=== PATIENT | female | born 1995 | race African-American/Black ===

== ENCOUNTER 2017-01-24 23:54 | Emergency (ER) | payer OTHER ==
--- NOTE | 2017-01-25 00:15 | EDM.PDOC ---
ED HPI GI/ABDOMINAL - General Chief Complaint: Abdominal Pain Stated Complaint: LEFT SIDE ABDOMINAL PAIN Time Seen by Provider: 01/25/17 00:15 - History of Present Illness INITIAL COMMENTS - FREE TEXT/NARRATIVE: 20-year-old female presents to the emergency room with abdominal pain. This pain has been getting worse over the last couple of days. She has noticed a little bit of blood in her stool at times. Her stools are often hard and she does not go every day. The patient is nursing. She has a history of constipation the patient has been in the [place] a little over a [place]. In her [place] of [facility] she had constipation there as well it sounds like. She has some intermittent nausea no vomiting. 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 Understands and patient. Agrees to proceed Social & Family History - Tobacco Use Smoking Status *Q: Never Smoker Second Hand Smoke Exposure: No - Alcohol Use Days Per Week of Alcohol Use: 0 - Recreational Drug Use Recreational Drug Use: No ED ROS GENERAL - Review of Systems Review Of Systems: See Below Constitutional: Reports: no symptoms, fever, chills Respiratory: Reports: No Symptoms Cardiovascular: Reports: No symptoms GI/Abdominal: Reports: Abdominal pain, Constipation, Nausea. Denies: Diarrhea, Vomiting : Reports: no symptoms ED EXAM, GI/ABD - Physical Exam Exam: See Below Exam Limited By: No limitations General Appearance: alert, no apparent distress Eyes: bilateral: normal appearance Ears: normal external exam, normal canal, hearing grossly normal, normal TMs Nose: normal inspection, normal mucosa, no blood Throat/Mouth: Normal inspection, Normal lips, Normal teeth, Normal gums, Normal oropharynx, Normal voice, No airway compromise Neck: normal inspection, supple, non-tender, full range of motion, other (She has a tender lymph node at the angle of her jaw on the left side this appears to be freely movable) Respiratory/Chest: no respiratory distress, lungs clear, normal breath sounds Cardiovascular: regular rate, rhythm, no edema, no murmur GI/Abdominal: normal bowel sounds, soft, other (Vague bilateral tenderness seems to be worse the local were quadrants no significant upper quadrant discomfort no suprapubic discomfort no rebound or guarding) Back Exam: normal inspection. No: CVA tenderness (L), CVA tenderness (R) Extremities: normal inspection, no pedal edema Course - Vital Signs Last Recorded V/S: Last Vital Signs Temp 36.2 C 01/25/17 00:08 Pulse 68 01/25/17 00:08 Resp 18 01/25/17 00:08 BP 123/83 01/25/17 00:08 Pulse Ox 100 01/25/17 00:08 - Orders/Labs/Meds Orders: Active Orders 24 hr Category Date Time Status Abdomen 2V AP Flat Upright [CR] Stat Exams 01/25/17 00:36 Taken Magnesium Citrate [Citrate of Magnesia] Med 01/25/17 03:12 Once 295 ml PO ONETIME ONE Medication Orders Magnesium Citrate (Citrate Of Magnesia) 295 ml PO ONETIME ONE Stop: 01/25/17 03:13 Labs: Laboratory Tests 01/25/17 01/25/17 01/25/17 Range/Units 00:21 00:21 00:56 WBC 7.97 (3.98-10.04) K/mm3 RBC 4.44 (3.98-5.22) M/mm3 Hgb 11.6 (11.2-15.7) gm/L Hct 35.3 (34.1-44.9) % MCV 79.5 (79.4-94.8) fl MCH 26.1 (25.6-32.2) pg MCHC 32.9 (32.2-35.5) g/dl RDW Std Deviation 44.0 (36.4-46.3) fL Plt Count 275 (182-369) K/mm3 MPV 8.8 L (9.4-12.3) fl Neutrophils % (Manual) 31 L (40-60) % Band Neutrophils % 0 (0-10) % Lymphocytes % (Manual) 55 H (20-40) % Atypical Lymphs % 0 % Monocytes % (Manual) 6 (2-10) % Eosinophils % (Manual) 6 H (0.7-5.8) % Basophils % (Manual) 2 H (0.1-1.2) Platelet Estimate Adequate Plt Morphology Comment Normal Anisocytosis 1+ slight Ovalocytes Few Acanthocytes (Spur) Rare Schistocytes Rare RBC Morph Comment Not Reportable Sodium (136-145) mEq/L Potassium (3.5-5.1) mEq/L Chloride (98-107) mEq/L Carbon Dioxide (21-32) mEq/L Anion Gap (5-15) BUN (7-18) mg/dL Creatinine (0.55-1.02) mg/dL Est Cr Clr Drug Dosing mL/min Estimated GFR (MDRD) (>60) mL/min BUN/Creatinine Ratio (14-18) Glucose (74-106) mg/dL Calcium (8.5-10.1) mg/dL Total Bilirubin (0.2-1.0) mg/dL AST (15-37) U/L ALT (14-59) U/L Alkaline Phosphatase (46-116) U/L Total Protein (6.4-8.2) g/dl Albumin (3.4-5.0) g/dl Globulin gm/dL Albumin/Globulin Ratio (1-2) Urine Color Yellow (Yellow) Urine Appearance Clear (Clear) Urine pH 7.0 (5.0-8.0) Ur Specific [place] 1.020 (1.005-1.030) Urine Protein Trace H (Negative) Urine Glucose (UA) Negative (Negative) Urine Ketones 1+ H (Negative) Urine Occult Blood Negative (Negative) Urine Nitrite Negative (Negative) Urine Bilirubin Negative (Negative) Urine Urobilinogen 0.2 (0.2-1.0) Ur Leukocyte Esterase Negative (Negative) Urine RBC 0-5 (0-5) /hpf Urine WBC 0-5 (0-5) /hpf Ur Epithelial Cells 5-10 H (0-5) /hpf Urine Bacteria Few (FEW) /hpf Urine Mucus Not seen (FEW) /hpf Urine HCG, Qual Negative (NEGATIVE) 01/25/17 Range/Units 00:56 WBC (3.98-10.04) K/mm3 RBC (3.98-5.22) M/mm3 Hgb (11.2-15.7) gm/L Hct (34.1-44.9) % MCV (79.4-94.8) fl MCH (25.6-32.2) pg MCHC (32.2-35.5) g/dl RDW Std Deviation (36.4-46.3) fL Plt Count (182-369) K/mm3 MPV (9.4-12.3) fl Neutrophils % (Manual) (40-60) % Band Neutrophils % (0-10) % Lymphocytes % (Manual) (20-40) % Atypical Lymphs % % Monocytes % (Manual) (2-10) % Eosinophils % (Manual) (0.7-5.8) % Basophils % (Manual) (0.1-1.2) Platelet Estimate Plt Morphology Comment Anisocytosis Ovalocytes Acanthocytes (Spur) Schistocytes RBC Morph Comment Sodium 141 (136-145) mEq/L Potassium 3.9 (3.5-5.1) mEq/L Chloride 107 (98-107) mEq/L Carbon Dioxide 24 (21-32) mEq/L Anion Gap 13.9 (5-15) BUN 12 (7-18) mg/dL Creatinine 1.0 (0.55-1.02) mg/dL Est Cr Clr Drug Dosing 94.62 mL/min Estimated GFR (MDRD) > 60 (>60) mL/min BUN/Creatinine Ratio 12.0 L (14-18) Glucose 90 (74-106) mg/dL Calcium 8.7 (8.5-10.1) mg/dL Total Bilirubin 0.5 (0.2-1.0) mg/dL AST 36 (15-37) U/L ALT 64 H (14-59) U/L Alkaline Phosphatase 104 (46-116) U/L Total Protein 7.1 (6.4-8.2) g/dl Albumin 3.6 (3.4-5.0) g/dl Globulin 3.5 gm/dL Albumin/Globulin Ratio 1.0 (1-2) Urine Color (Yellow) Urine Appearance (Clear) Urine pH (5.0-8.0) Ur Specific [place] (1.005-1.030) Urine Protein (Negative) Urine Glucose (UA) (Negative) Urine Ketones (Negative) Urine Occult Blood (Negative) Urine Nitrite (Negative) Urine Bilirubin (Negative) Urine Urobilinogen (0.2-1.0) Ur Leukocyte Esterase (Negative) Urine RBC (0-5) /hpf Urine WBC (0-5) /hpf Ur Epithelial Cells (0-5) /hpf Urine Bacteria (FEW) /hpf Urine Mucus (FEW) /hpf Urine HCG, Qual (NEGATIVE) Meds: Medications Generic Name Dose Route Start Last Admin Trade Name Cedric PRN Reason Stop Dose Admin Magnesium Citrate 295 ml 01/25/17 03:12 Citrate Of Magnesia PO 01/25/17 03:13 ONETIME ONE - Re-Assessments/Exams Free Text/Narrative Re-Assessment/Exam: 01/25/17 03:17 For evaluation nonspecific abdominal x-rays nondiagnostic she's got a fairly. Pattern especially in the on the right side less so in other places x-ray not necessarily diagnostic of constipation. Based on her history we'll treat as though she has constipation patient and her understand return in 12 hours if not better sooner if getting worse. Departure - Departure Time of Disposition: 03:02 Disposition: Home, Self-Care 01 Clinical Impression: Abdominal pain of unknown cause, Constipation Prescriptions: Magnesium Citrate 295 ml PO ONETIME #1 solution Instructions: Constipation, Adult, Abdominal Pain, Adult, [id number] Referrals: Gladys Bronson MD [Primary Care Provider] - Forms: ED Department Discharge Additional Instructions: Return to the emergency room if any questions or problems. Return in 12 hours if not better sooner if getting worse. Increase your fluid intake as we discussed. Increase fruit and vegetable intake. Clear liquid diet for the next 12 hours then slowly advance as tolerated. Try the bottle of magnesium citrate and see if this helps. Followup in the clinic this next week if needed. - My Orders Last 24 Hours: My Active Orders 01/25/17 00:36 Abdomen 2V AP Flat Upright [CR] Stat 01/25/17 03:12 Magnesium Citrate [Citrate of Magnesia] 295 ml PO ONETIME ONE - Assessment/Plan Last 24 Hours: My Active Orders 01/25/17 00:36 Abdomen 2V AP Flat Upright [CR] Stat 01/25/17 03:12 Magnesium Citrate [Citrate of Magnesia] 295 ml PO ONETIME ONE
[2017-01-25 00:25] VITALS: BP 123/83
[2017-01-25] MEDS ORDERED: Magnesium Citrate Solution 296 ML Bottle PO ONE (03:12)
--- NOTE | 2017-01-25 08:11 | CR ---
Abdomen: Supine and upright views of the abdomen were obtained. Comparison: No previous study. Slight increased stool is noted within portions of the colon. Bowel gas pattern is otherwise unremarkable. No abnormal calcifications or soft tissue abnormality is seen. Bony structures are unremarkable. Impression: 1. Slight increased stool. Diagnostic code #2
== END 2017-01-25 03:23 | disposition home or self-care (01) ==
LOC: JD.ED 23:54
DX: K59.00 Constipation, unspecified (principal)
CPT/HCPCS: 36415; 74020; 80053; 81001; 81025; 85025; 99284; A9270; 99282